=== PATIENT | female | born 1980 | race Caucasian/White ===

== ENCOUNTER → 2017-12-25 | Outpatient (CLI) | payer OTHER | LOC: BC 03:23 | DX: Z12.31 Encounter for screening mammogram for malignant neoplasm of breast (principal) ==

== ENCOUNTER 2019-09-28 21:48 | Emergency (ER) | payer OTHER ==
[~2019-09-28] VITALS: Ht 154.9 cm; Wt 49.9 kg
[2019-09-28 21:48] VITALS: BP 131/93
== END 2019-09-28 22:28 | disposition home or self-care (01) ==
LOC: ER 21:48
DX: U07.1 COVID-19 (principal)

== ENCOUNTER → 2020-05-22 | Outpatient (CLI) | payer OTHER ==
[2020-05-22 08:41] LABS: URINE BILIRUBIN NEGATIVE (Negative); URINE BLOOD NEGATIVE (Negative); URINE CLARITY CLEAR; URINE COLOR YELLOW; URINE GLUCOSE-RANDOM* NEGATIVE (Negative); URINE KETONES NEGATIVE (Negative); URINE LEUKOCYTES-REFLEX NEGATIVE (Negative); URINE NITRITE-REFLEX NEGATIVE (Negative); URINE PROTEIN (DIPSTICK) NEGATIVE (Negative); URINE SPECIFIC GRAVITY <= 1.005 (1.005-1.035); URINE UROBILINOGEN 0.2 E.U./dl (0.2-1.0)
[2020-05-22 08:42] LABS: ABSOLUTE NEUTROPHILS 4.2 thou/uL (1.4-8.2); BASOPHILS 0.7 % (0.0-2.0); EOSINOPHILS 2.4 % (0.0-3.0); HEMATOCRIT 34.8 % (37.0-47.0); HEMOGLOBIN 11.5 gm/dL (12.0-15.0); LYMPHOCYTES 38.3 % (24.0-44.0); MCH 28.5 pg (26.0-34.0); MCHC 33.1 g/dL (28.0-37.0); MCV 86.1 fL (80.0-100.0); MONOCYTES 9.2 % (1.0-8.0); PLATELET COUNT 310 thou/uL (150-400); POLYS 49.4 % (36.0-66.0); RBC 4.04 mil/uL (4.20-5.00); RDW 13.6 % (10.5-14.5); WBC 8.6 thou/uL (4.0-11.0)
[2020-05-22 09:13] LABS: ALBUMIN 3.8 g/dL (3.4-5.0); ANION GAP 9 mmol/L (7-16); BUN 8 mg/dL (7-18); CALCIUM 9.1 mg/dL (8.5-10.1); CHLORIDE 102 mmol/L (98-107); CHOLESTEROL 199 mg/dL (<200); CO2 26 mmol/L (21-32); CREATININE 0.7 mg/dL (0.6-1.0); GLUCOSE 93 mg/dL (74-106); HDL CHOLESTEROL 79 mg/dL (>40); LDL CHOLESTEROL 112 mg/dL (<100); POTASSIUM 4.2 mmol/L (3.5-5.1); SGOT 16 U/L (15-37); SGPT 17 U/L (30-65); SODIUM 137 mmol/L (136-145); TC:HDL 2.5 Ratio (Not establshd); TOTAL BILIRUBIN 0.4 mg/dL (0.2-1.0); TOTAL PROTEIN 7.6 g/dL (6.4-8.2); TRIGLYCERIDE 44 mg/dL (<150); VLDL 9 mg/dL (<40)
== END ==
LOC: LAB 07:58
DX: E78.2 Mixed hyperlipidemia (principal)

== ENCOUNTER 2020-08-13 12:50 | Emergency (ER) | payer OTHER ==
[~2020-08-13] VITALS: Ht 154.9 cm; Wt 58.1 kg
--- NOTE | ~2020-08-13 | EMS ---
[address] [address] EMS Patient Care Report Name: CAROL ANN OLIVEIRA Room #: DEP CYNDI Garcia#: [id number] Admission: 08/13/20 Attend Phys: Discharge: 08/13/20 Date of : 80 Report #: [id number] THIS REPORT FOR: //name// Report Transmitted: 08/13/2020 16:21 EMS Care Summary [facility] MED-ACT Incident [id number] @ 08/13/2020 11:53 Incident Location [address] [place] [address] Patient KATHLEEN OLIVEIRA Female, 39 Years 1980 Patient Address [address] [address] Patient History Hypothyroidism, Patient Allergies No known allergies, Patient Medications Synthroid, Chief Complaint Syncopal episode from hypotension Disposition Transported No Lights/[place] Dispatch Reason Unconscious/Fainting Transported To [facility] Narrative [id number] arrived on scene to find pt seated in a chair. Pt appeared to be in mild distress due to lethargy. Pt's friend reports pt had a syncopal episode that lasted about 20 seconds. Pt [address] [address] EMS Patient Care Report Name: CAROL ANN OLIVEIRA Room #: DEP Malachi.#: [id number] Admission: 08/13/20 Attend Phys: Discharge: 08/13/20 Date of : [birth year] Report #: [id number] felt lightheaded and dizzy just prior to the event. The friend states "Her lips turned blue, her teeth clinched, and she got really sweaty." Pt reports giving blood around 1000 this morning. Pt has donated plasma before, but this is the first time she has given whole blood. Pt reports less than ideal fluid intake and only two pieces of toast to eat today. Pt has hypothyroidism, but otherwise denies significant medical hx. Pt denies chest pain, dyspnea, or any other symptoms. Pt was seated in a chair when the event occurred and she denies any injury or pain. VS, exam, bG checked- 147. Initially, EMS had a hard time getting a BP on pt. When it finally read, pt was laid supine on the cot, secured with seatbelts--> unit. IV established and 500ccs NS bolus given. Pt's BP only came up to 83 systolic with a MAP of 50, so 2nd 500cc bolus started. Upon hospital arrival, pt's BP finally raised to 99/66. Pt also stated she was feeling much better at this time. No further complaints and VS monitored en route. Biocom to [facility] with information only. Pt sheet lifted to ER bed #8. Report given and care transferred to [facility] [employer] [facility], pt condition improved. Initial Vitals @12:31P: 69,BP: 82/34,SpO2: 98, @12:23P: 60,BP: 77/48,SpO2: 98, @12:04P: 171,SpO2: 90, @12:20P: 62,SpO2: 94, @12:38P: 63,BP: 83/60,SpO2: 99, @12:43P: 110,R: 16,BP: 99/66,GCS: 15,SpO2: 98,Revised Trauma: 12,SC Suspected: false @12:09P: 69,R: 18,BP: 47/36,Pain: 0/10,GCS: 15,Glucose: 147,SpO2: 100,Revised Trauma: 9, Assessments @12:04MENTAL:Person Oriented,Time Oriented,Place Oriented,Event Oriented,SKIN:Diaphoresis,Pale,HEENT:Head/Face: No Abnormalities,Neck/Airway: No Abnormalities,LUNG SOUNDS:General: No Abnormalities,ABDOMEN:General: No Abnormalities,PELVIS//GI:No Abnormalities,EXTREMITIES:Left Arm: No Abnormalities,Right Arm: No Abnormalities,Left Leg: No Abnormalities,Right Leg: No Abnormalities,PULSE:NEURO:No Abnormalities, Impression Hypotension Procedures @12:23Normal Saline (.9% NaCl) 650cc (20 ga) Site: Forearm-RightResponse: [address] [address] EMS Patient Care Report Name: CAROL ANN OLIVEIRA Room #: DEP Radha#: [id number] Admission: 08/13/20 Attend Phys: Discharge: 08/13/20 Date of : 80 Report #: [id number] ImprovedSucceeded Timeline 11:51,Call Received 11:51,Psap Call 11:53,Dispatched 11:53,En Route 12:01,On Scene 12:02,At Patient 12:04,BP: / M,PULSE: 171,RR: R,SPO2: 90 Ox,ETCO2: ,BG: ,PAIN: ,GCS: , 12:09,BP: 47/36 M,PULSE: 69,RR: 18 R,SPO2: 100 Ox,ETCO2: ,B,PAIN: 0,GCS: 15, 12:20,BP: / M,PULSE: 62,RR: R,SPO2: 94 Ox,ETCO2: ,BG: ,PAIN: ,GCS: , 12:23,Normal Saline (.9% NaCl) 650cc 20 ga Site: Forearm-Right,Response: ImprovedSucceeded, 12:23,BP: 77/48 M,PULSE: 60,RR: R,SPO2: 98 Ox,ETCO2: ,BG: ,PAIN: ,GCS: , 12:24,Depart Scene 12:31,BP: 82/34 M,PULSE: 69,RR: R,SPO2: 98 Ox,ETCO2: ,BG: ,PAIN: ,GCS: , 12:38,BP: 83/60 M,PULSE: 63,RR: R,SPO2: 99 Ox,ETCO2: ,BG: ,PAIN: ,GCS: , 12:43,At Destination 12:43,BP: 99/66 M,PULSE: 110,RR: 16 R,SPO2: 98 Ox,ETCO2: ,BG: ,PAIN: ,GCS: 15, 13:06,Call Closed Disclaimer v1.1 Copyright 2020 [employer] This EMS Care Summary contains data elements from the applicable legal record (which may be displayed differently). It is designed to provide pertinent information for the following purposes: continuity of care, clinical quality, and state data reporting. The complete legal record is available to ED staff and administrators of the receiving hospital in [employer] Patient Tracker. All data is provided "as is."
[2020-08-13 13:59] LABS: ABSOLUTE NEUTROPHILS 16.3 thou/uL (1.4-8.2); BASOPHILS 0.1 % (0.0-2.0); EOSINOPHILS 0.2 % (0.0-3.0); HEMATOCRIT 29.3 % (37.0-47.0); HEMOGLOBIN 9.7 gm/dL (12.0-15.0); LYMPHOCYTES 7.1 % (24.0-44.0); MCH 29.6 pg (26.0-34.0); MCHC 33.3 g/dL (28.0-37.0); MCV 89.1 fL (80.0-100.0); MONOCYTES 4.2 % (1.0-8.0); PLATELET COUNT 212 thou/uL (150-400); POLYS 88.4 % (36.0-66.0); RBC 3.28 mil/uL (4.20-5.00); RDW 13.5 % (10.5-14.5); WBC 18.4 thou/uL (4.0-11.0)
[2020-08-13 14:08] LABS: CALCIUM 7.3 mg/dL (8.5-10.1); CREATININE 0.7 mg/dL (0.6-1.0); POTASSIUM 3.9 mmol/L (3.5-5.1)
[2020-08-13 14:15] LABS: ALBUMIN 2.9 g/dL (3.4-5.0); MAGNESIUM 1.6 mg/dL (1.8-2.4); TOTAL BILIRUBIN 0.3 mg/dL (0.2-1.0)
[2020-08-13 15:17] LABS: URINE BILIRUBIN NEGATIVE (Negative); URINE BLOOD NEGATIVE (Negative); URINE CLARITY CLEAR; URINE COLOR YELLOW; URINE GLUCOSE-RANDOM* NEGATIVE (Negative); URINE KETONES NEGATIVE (Negative); URINE LEUKOCYTES-REFLEX 1+ (Negative); URINE NITRITE-REFLEX NEGATIVE (Negative); URINE PROTEIN (DIPSTICK) NEGATIVE (Negative); URINE UROBILINOGEN 0.2 E.U./dl (0.2-1.0)
[2020-08-13 15:24] LABS: SQUAMOUS >10 Many /LPF (0-3)
[2020-08-13 15:25] LABS: BACTERIA-REFLEX 1-9 Few /HPF (None Seen); CASTS None Seen /LPF (None Seen); CRYSTALS None Seen /LPF (None Seen); URINE RBC 1-2 Rare /HPF (NONE SEEN); URINE WBC-REFLEX 6-15 Few /HPF (0-5)
[2020-08-13 15:54] VITALS: BP 107/60
--- NOTE | 2020-08-14 07:18 | EKG ---
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
== END 2020-08-13 15:56 | disposition home or self-care (01) ==
LOC: ER 12:50
PROVIDERS: Emergency Medicine
DX: R55 Syncope and collapse (principal); D64.9 Anemia, unspecified; D72.829 Elevated white blood cell count, unspecified; E03.9 Hypothyroidism, unspecified; Z88.1 Allergy status to other antibiotic agents

== ENCOUNTER 2020-08-19 07:05 | Emergency (ER) | payer OTHER ==
[~2020-08-19] VITALS: Ht 154.9 cm; Wt 47.6 kg
[2020-08-19 07:50] LABS: ABSOLUTE NEUTROPHILS 3.7 thou/uL (1.4-8.2); BASOPHILS 0.6 % (0.0-2.0); EOSINOPHILS 1.1 % (0.0-3.0); LYMPHOCYTES 30.1 % (24.0-44.0); MCH 29.8 pg (26.0-34.0); MCHC 33.3 g/dL (28.0-37.0); MCV 89.5 fL (80.0-100.0); PLATELET COUNT 291 thou/uL (150-400); POLYS 58.2 % (36.0-66.0); RBC 3.69 mil/uL (4.20-5.00); RDW 13.5 % (10.5-14.5); WBC 6.4 thou/uL (4.0-11.0)
[2020-08-19 07:54] LABS: CALCIUM 8.8 mg/dL (8.5-10.1); CREATININE 0.8 mg/dL (0.6-1.0); POTASSIUM 3.4 mmol/L (3.5-5.1)
[2020-08-19 08:02] LABS: URINE BILIRUBIN NEGATIVE (Negative); URINE BLOOD NEGATIVE (Negative); URINE CLARITY CLEAR; URINE COLOR YELLOW; URINE GLUCOSE-RANDOM* NEGATIVE (Negative); URINE KETONES NEGATIVE (Negative); URINE LEUKOCYTES-REFLEX NEGATIVE (Negative); URINE NITRITE-REFLEX NEGATIVE (Negative); URINE PROTEIN (DIPSTICK) NEGATIVE (Negative); URINE SPECIFIC GRAVITY <= 1.005 (1.005-1.035); URINE UROBILINOGEN 0.2 E.U./dl (0.2-1.0)
[2020-08-19 08:28] LABS: DIRECT BILIRUBIN 0.2 mg/dL (<0.1-0.2); TOTAL BILIRUBIN 0.6 mg/dL (0.2-1.0); TOTAL PROTEIN 8.2 g/dL (6.4-8.2)
[2020-08-19 10:25] VITALS: BP 103/70
== END 2020-08-19 10:25 | disposition home or self-care (01) ==
LOC: ER 07:05
PROVIDERS: Emergency Medicine
DX: R10.9 Unspecified abdominal pain (principal); R55 Syncope and collapse; R35.0 Frequency of micturition; Z88.0 Allergy status to penicillin

== ENCOUNTER → 2021-02-22 | Outpatient (CLI) | payer OTHER | LOC: LAB 09:23 | PROVIDERS: ATTEND Internal Medicine Endocrinology, Diabetes & Metabolism | DX: E22.1 Hyperprolactinemia (principal); E03.9 Hypothyroidism, unspecified ==

== ENCOUNTER → 2021-03-02 | Outpatient (CLI) | payer OTHER | LOC: ULTRA 09:37 | PROVIDERS: ATTEND Internal Medicine Endocrinology, Diabetes & Metabolism | DX: E04.1 Nontoxic single thyroid nodule (principal) ==